=== PATIENT | female | born 2000 | race African-American/Black ===

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

== ENCOUNTER 2021-09-16 11:06 | Emergency (ER) | payer OTHER ==
[2021-09-16 12:45] VITALS: BP 105/64; PULSE 74; TEMP 98.1; BMI 24.0
[2021-09-16 14:19] LABS: BASO % 0.7 % (0-2.0); HEMATOCRIT 37.7 % (32.4-45.2); HEMOGLOBIN 12.1 GM/dL (10.7-15.3); LYMPH % 38.4 % (8-40); MEAN CELL VOLUME 74.9 fl (80-96); MEAN PLT VOLUME 10.5 fl (7.5-11.1); MONO % 7.8 % (3.8-10.2); NEUT % 52.1 % (42.8-82.8); PLATELET COUNT 176 10^3/uL (134-434); RBC 5.03 M/mm3 (3.60-5.2); RDW 14.5 % (11.6-15.6)
[2021-09-16 14:40] LABS: CALCIUM 9.2 mg/dL (8.5-10.1)
[2021-09-16 14:41] LABS: ALBUMIN 4.3 g/dl (3.4-5.0); BLOOD UREA NITROGEN 9.2 mg/dL (7-18)
[2021-09-16 14:44] LABS: CREATININE 0.8 mg/dL (0.55-1.3)
[2021-09-16 14:45] LABS: BILIRUBIN,TOTAL 0.4 mg/dL (0.2-1); TOT PROT 7.4 g/dl (6.4-8.2)
[2021-09-16 16:07] LABS: URINE APPEARANCE CLEAR; URINE BILIRUBIN NEGATIVE (NEGATIVE); URINE COLOR YELLOW; URINE GLUCOSE (UA) NEGATIVE (NEGATIVE); URINE KETONE NEGATIVE (NEGATIVE); URINE LEUK ESTERASE NEGATIVE (NEGATIVE); URINE NITRITE NEGATIVE (NEGATIVE); URINE PROTEIN NEGATIVE (NEGATIVE); URINE UROBILINOGEN 0.2 mg/dL (0.2-1.0)
[2021-09-16 16:09] LABS: HCG,QUALITATIVE URINE Negative
== END 2021-09-16 15:00 | disposition home or self-care (01) ==
LOC: JER 11:06
DX: Z13.0 Encounter for screening for diseases of the blood and blood-forming organs and certain disorders involving the immune mechanism (principal)
CPT/HCPCS: 36415; 80053; 81003; 84703; 85025; 87086; 99283-25

== ENCOUNTER 2024-01-30 12:45 | Inpatient (IN) | payer OTHER ==
[2024-01-30 13:08] VITALS: BMI 22.1
[2024-01-30] MEDS ORDERED: MORPHINE SULFATE 2 MG/ML SYRINGE ONE (14:15)
[2024-01-30] MEDS ORDERED: ACETAMINOPHEN INJECTION 100 ML ONE (14:15)
[2024-01-30] MEDS: morphine SULFATE 4 MG/ML VIAL IVPUSH ONE (14:25)
[2024-01-30] MEDS: ACETAMINOPHEN 1000 MG/100 ML BAG IVPB ONE (14:26)
[2024-01-30 14:27] LABS: HEMATOCRIT 41.1 % (32.4-45.2); HEMOGLOBIN 12.8 GM/dL (10.7-15.3); MCH 23.4 pg (25.7-33.7); MCHC 31.1 g/dl (32.0-36.0); MEAN CELL VOLUME 75.2 fl (80-96); MEAN PLT VOLUME 10.8 fl (7.5-11.1); PLATELET COUNT 213 10^3/uL (134-434); RBC 5.47 M/mm3 (3.60-5.2); RDW 14.4 % (11.6-15.6); WHITE BLOOD COUNT 22.6 K/mm3 (4.0-10.0)
[2024-01-30 14:34] LABS: INR 1.06 (0.83-1.09); PROTHROMBIN TIME (PATIENT) 12.2 SEC (9.7-13.0)
[2024-01-30 14:42] LABS: POTASSIUM 3.9 mmol/L (3.5-5.1)
[2024-01-30 14:44] LABS: ALBUMIN 4.2 g/dl (3.4-5.0); CALCIUM 9.7 mg/dL (8.5-10.1)
[2024-01-30 14:45] LABS: BLOOD UREA NITROGEN 9.7 mg/dL (7-18)
[2024-01-30 14:48] LABS: CREATININE 0.8 mg/dL (0.55-1.3)
[2024-01-30 14:49] LABS: BILIRUBIN,TOTAL 0.9 mg/dL (0.2-1); TOT PROT 7.7 g/dl (6.4-8.2)
[2024-01-30 15:27] LABS: EPI CELLS 22 /uL (0-25.1); HYALINE CASTS 9 /uL (0-3.1); PH,URINE 5.5 (5.0-8.0); URINE APPEARANCE CLOUDY; URINE BACTERIA 187 /uL (0-1359); URINE BILIRUBIN NEGATIVE (NEGATIVE); URINE COLOR YELLOW; URINE GLUCOSE (UA) NEGATIVE (NEGATIVE); URINE KETONE 1+ (NEGATIVE); URINE LEUK ESTERASE 2+ (NEGATIVE); URINE NITRITE NEGATIVE (NEGATIVE); URINE PROTEIN TRACE (NEGATIVE); URINE RBC 14 /uL (0-23.9); URINE WBC 690 /uL (0-25.8)
[2024-01-30 15:57] LABS: ANISOCYTOSIS 0; MACROCYTOSIS 1+
[2024-01-30] MEDS ORDERED: ACETAMINOPHEN 325 MG TABLET (FP) ONE (19:02)
[2024-01-30] MEDS ORDERED: cefTRIAXone SODIUM 1 GM VIAL ONE (19:02)
[2024-01-30] MEDS: CEFTRIAXONE 1 GM in DEXTROSE 5%-WATER - 100 ML IVPB ONE (19:18)
[2024-01-30] MEDS: ACETAMINOPHEN 325 MG TABLET (FP) PO ONE (19:18)
[2024-01-30] MEDS ORDERED: morphine SULFATE 4 MG/ML VIAL ONE (20:05)
[2024-01-30] MEDS ORDERED: DOXYCYCLINE HYCLATE 100 MG CAPSULE PO ONE (20:06)
[2024-01-30] MEDS: morphine CARPU-JECT 4 MG/1 ML DISP.SYRIN IVPUSH ONE (20:20)
[2024-01-30] MEDS: DOXYCYCLINE HYCLATE 100 MG CAPSULE PO ONE (20:21)
[2024-01-30] MEDS ORDERED: ONDANSETRON 4 MG/2 ML VIAL ONE (21:26)
[2024-01-30] MEDS: ONDANSETRON 4 MG/2 ML VIAL IVPUSH ONE (21:32)
[2024-01-30] MEDS ORDERED: SODIUM CHLORIDE 1,000 ML IV SCH (21:45)
[2024-01-30] MEDS ORDERED: MORPHINE SULFATE 2 MG/ML SYRINGE IVPUSH PRN (21:48)
[2024-01-30] MEDS: SODIUM CHLORIDE 0.9% 500 ML INFUS.BAG IV ONE (22:29)
[2024-01-31] MEDS ORDERED: ACETAMINOPHEN INJECTION 100 ML ONE (00:16)
[2024-01-31] MEDS: ACETAMINOPHEN 1000 MG/100 ML BAG IVPB ONE (00:22)
[2024-01-31 00:41] LABS: COCAINE, UR NEGATIVE (NEGATIVE); METHADONE, UR NEGATIVE (NEGATIVE); URINE AMPHETAMINES NEGATIVE (NEGATIVE); URINE BARBITURATES NEGATIVE (NEGATIVE)
[2024-01-31 00:42] LABS: PHENCYCLIDINE,URINE NEGATIVE (NEGATIVE)
[2024-01-31 00:49] LABS: OPIATES, URI POSITIVE (NEGATIVE); URINE BENZODIAZEPINES NEGATIVE (NEGATIVE)
[2024-01-31] MEDS: CEFOXITIN SODIUM/DEXTROSE,ISO 2 GM/50 ML BAG IVPB SCH (01:02)
[2024-01-31] MEDS: ACETAMINOPHEN 1000 MG/100 ML BAG IVPB PRN (08:35)
[2024-01-31] MEDS: DOXYCYCLINE INJECTION 100 MG in DEXTROSE 5%-WATER 100 ML IVPB SCH (08:36)
[2024-02-01 08:24] LABS: HEMATOCRIT 34.7 % (32.4-45.2); HEMOGLOBIN 10.9 GM/dL (10.7-15.3); MCH 23.7 pg (25.7-33.7); MCHC 31.4 g/dl (32.0-36.0); MEAN CELL VOLUME 75.3 fl (80-96); MEAN PLT VOLUME 10.3 fl (7.5-11.1); PLATELET COUNT 173 10^3/uL (134-434); RBC 4.61 M/mm3 (3.60-5.2); RDW 13.9 % (11.6-15.6); WHITE BLOOD COUNT 20.8 K/mm3 (4.0-10.0)
[2024-02-01 08:41] LABS: POTASSIUM 3.8 mmol/L (3.5-5.1)
[2024-02-01 08:43] LABS: ALBUMIN 3.4 g/dl (3.4-5.0); CALCIUM 9.1 mg/dL (8.5-10.1)
[2024-02-01 08:44] LABS: BLOOD UREA NITROGEN 6.1 mg/dL (7-18); MAGNESIUM 1.8 mg/dL (1.8-2.4)
[2024-02-01 08:47] LABS: CREATININE 0.8 mg/dL (0.55-1.3)
[2024-02-01 08:48] LABS: BILIRUBIN,TOTAL 0.5 mg/dL (0.2-1)
[2024-02-01] MEDS: SODIUM CHLORIDE 1,000 ML IV SCH (09:07)
[2024-02-01] MEDS: KETOROLAC TROMETHAMINE 15 MG/ML VIAL IVPUSH PRN (09:16)
[2024-02-01 10:09] LABS: ANISOCYTOSIS 1+; MACROCYTOSIS 1+
[2024-02-01] MEDS ORDERED: ACETAMINOPHEN 325 MG TABLET (FP) PO PRN (13:40)
[2024-02-01] MEDS: ACETAMINOPHEN 1000 MG/100 ML BAG IVPB PRN (14:36)
[2024-02-01] MEDS: CEFOXITIN SODIUM/DEXTROSE,ISO 2 GM/50 ML BAG IVPB SCH (15:01)
[2024-02-01] MEDS: NAPROXEN 250 MG TABLET PO SCH (21:23)
[2024-02-01] MEDS ORDERED: ACETAMINOPHEN 325 MG TABLET (FP) PO SCH (22:00)
[2024-02-01 23:47] VITALS: BP 128/72; PULSE 89; RESP 19; TEMP 99
[2024-02-02] MEDS ORDERED: ACETAMINOPHEN 325 MG TABLET (FP) PO SCH ×2 (14:00)
== END 2024-02-01 22:14 | disposition left against medical advice (07) | DRG 531 ==
LOC: JER 12:45 → JERBED 22:22 → J7W 01-31 02:22 → OBSVTOIN 01-31 13:41 → J7W 02-01 15:47
PROVIDERS: ADMIT Internal Medicine
DX: N73.8 Other specified female pelvic inflammatory diseases (principal); N39.0 Urinary tract infection, site not specified; D64.9 Anemia, unspecified
CPT/HCPCS: 36415; 74177-TC; 76830-TC; 80053; 80307; 81003; 83605; 83690; 83735; 84703; 85025; 85610; 85730; 86140; 86850; 86900; 86901; 87040; 87086; 87491; 87591; 93005; 93010; 99285-25; G0378; J0131